=== PATIENT | female | born 1985 | race Caucasian/White ===

== ENCOUNTER 2018-05-24 22:01 | Emergency (ER) | payer SELFPAY ==
[2018-05-24 22:18] VITALS: BP 115/78; PULSE 74; TEMP 98.3; BMI 21.7
--- NOTE | 2018-05-24 22:37 | PDOC ---
History of Present Illness - History of Present Illness Initial Comments: This patient is a 32 year old female with no significant PMHx, who presents with nausea,and chest tightness today. Patient states that her nausea began this around 11 this morning and states that it comes and goes and has progressively worsened throughout the day. She states that she can't differentiate whether she is hungry or nauseous. She states that her last real meal was this morning in which she has had an egg and waffle. She states that she has only been able to tolerate a few bites of food since. She states that in the past hour she felt this tightness/stiffness in her left-sided chest that radiates down her left arm and lasted for approx. 10 mins, it has since subsided. She states that the chest tightness is non-exertional, or pleuritic in nature. She states her daughter had the stomach flu last week. Past Medical History: denies Social History: denies Tobacco, EtOH, or IV drug use. PCP: Ortiz Deleon She denies any vomit, abdominal pain, diarrhea, fever or chills. 05/24/18 23:13 <Madhuri Lindsey - Last Filed: 05/24/18 23:17> <Robina Cook - Last Filed: 05/25/18 01:43> - General Chief Complaint: Nausea Stated Complaint: NAUSEA, PAIN Time Seen by Provider: 05/24/18 22:14 Past History <Madhuri Lindsey - Last Filed: 05/24/18 23:17> - Past Medical History COPD: No - Suicide/Smoking/Psychosocial Hx Smoking History: Never smoked Have you smoked in the past 12 months: No Hx Alcohol Use: No Drug/Substance Use Hx: No Substance Use Type: None <Robina Cook - Last Filed: 05/25/18 01:43> - Past Medical History Allergies/Adverse Reactions: Allergies Allergy/AdvReac Type Severity Reaction Status Date / Time No Known Allergies Allergy Verified 03/09/16 11:44 Home Medications: Ambulatory Orders Ondansetron [Zofran Odt -] 4 mg SL TID #12 od.tablet 05/24/18 Review of Systems - Review of Systems Comments:: GENERAL/CONSTITUTIONAL: No fever or chills. No weakness. HEAD, EYES, EARS, NOSE AND THROAT: No change in vision. No ear pain or discharge. No sore throat. CARDIOVASCULAR: + chest tightness, no shortness of breath. RESPIRATORY: No cough, wheezing, or hemoptysis. GASTROINTESTINAL: +nausea, no vomiting, diarrhea or constipation. GENITOURINARY: No dysuria, frequency, or change in urination. MUSCULOSKELETAL: No joint or muscle swelling or pain. No neck or back pain. SKIN: No rash NEUROLOGIC: No headache, vertigo, loss of consciousness, or change in strength/ sensation. ENDOCRINE: No increased thirst. No abnormal weight change. HEMATOLOGIC/LYMPHATIC: No anemia, easy bleeding, or history of blood clots. ALLERGIC/IMMUNOLOGIC: No hives or skin allergy. 05/24/18 22:59 <Madhuri Lindsey - Last Filed: 05/24/18 23:17> *Physical Exam - Vital Signs Last Vital Signs Temp Pulse Resp BP Pulse Ox 98.3 F 74 16 115/78 100 05/24/18 22:15 05/24/18 22:15 05/24/18 22:15 05/24/18 22:15 05/24/18 22:15 - Physical Exam Comments: GENERAL: Awake, alert, and fully oriented, in no acute distress HEAD: No signs of trauma EYES: PERRLA, EOMI, sclera anicteric, conjunctiva clear ENT: Auricles normal inspection, hearing grossly normal, nares patent, oropharynx clear without exudates. Moist mucosa NECK: Normal ROM, supple, no lymphadenopathy, JVD, or masses LUNGS: Breath sounds equal, clear to auscultation bilaterally. No wheezes, and no crackles HEART: Regular rate and rhythm, normal S1 and S2, no murmurs, rubs or gallops ABDOMEN: Soft, nontender, normoactive bowel sounds. No guarding, no rebound. No masses EXTREMITIES: Normal range of motion, no edema. No clubbing or cyanosis. No cords, erythema, or tenderness NEUROLOGICAL: Cranial nerves II through XII grossly intact. Normal speech, normal gait SKIN: Warm, Dry, normal turgor, no rashes or lesions noted. 05/24/18 23:00 <Madhuri Lindsey - Last Filed: 05/24/18 23:17> - Vital Signs Last Vital Signs Temp Pulse Resp BP Pulse Ox 98.3 F 74 16 115/78 100 05/24/18 22:15 05/24/18 22:15 05/24/18 22:15 05/24/18 22:15 05/24/18 22:15 <Robina Cook - Last Filed: 05/25/18 01:43> Moderate Sedation - Procedure Monitoring Vital Signs: Procedure Monitoring Vital Signs Temperature 98.3 F 05/24/18 22:15 Pulse Rate 74 05/24/18 22:15 Respiratory Rate 16 05/24/18 22:15 Blood Pressure 115/78 05/24/18 22:15 O2 Sat by Pulse Oximetry (%) 100 05/24/18 22:15 <Madhuri Lindsey - Last Filed: 05/24/18 23:17> - Procedure Monitoring Vital Signs: Procedure Monitoring Vital Signs Temperature 98.3 F 05/24/18 22:15 Pulse Rate 74 05/24/18 22:15 Respiratory Rate 16 05/24/18 22:15 Blood Pressure 115/78 05/24/18 22:15 O2 Sat by Pulse Oximetry (%) 100 05/24/18 22:15 <Robina Cook - Last Filed: 05/25/18 01:43> Heart Score/ECG Review - ECG Intrepretation Comment:: Taken at 22:28:06 Normal sinus rhythm Vent. rate: 77 bpm 05/24/18 23:17 <Madhuri Lindsey - Last Filed: 05/24/18 23:17> Medical Decision Making - Medical Decision Making Documentation has been prepared under my direction and personally reviewed by me in its entirety. I attest that this documented accurately reflects all work, treatment, procedures and medical decision making performed by me. As noted above, this otherwise healthy 32-year-old woman presents with 1 day history of nausea without vomiting. She denies diarrhea/fever/chills. She had one episode lasting approximately 10 minutes of left-sided chest pressure earlier this evening, resolving spontaneously prior to presentation in the emergency room. She had exposure to gastroenteritis: Her daughter had "stomach flu" approximately a week ago. No recent travel. LMP was approximately one month ago. Exam as noted. 12-lead electrocardiogram was performed and interpreted by me: Normal sinus rhythm at 77 beats per minute; intervals/axis/waveforms are all normal without evidence of acute ST or T-wave abnormalities. No evidence of acute cardiac arrhythmia. Urinalysis and PGU performed: UA is normal with dipstick showing only trace ketone. PGU is negative Clinical presentation most consistent with early gastroenteritis. Prescription for Zofran ODT 4 mg up to 3 times a day as needed for nausea; patient should maintain a clear liquid diet and advance as tolerated. She should return to the ER if she has persistent vomiting, fever or increasing abdominal pain <Robina Cook - Last Filed: 05/25/18 01:43> *DC/Admit/Observation/Transfer - Attestations Scribe Attestion: 05/24/18 23:00 Documentation prepared by Madhuri Lindsey, acting as medical physiologist for Robina Cook MD. <aMdhuri Lindsey - Last Filed: 05/24/18 23:17> <Robina Cook - Last Filed: 05/25/18 01:43> Diagnosis at time of Disposition: Nausea - Discharge Dispostion Disposition: HOME Condition at time of disposition: Stable - Prescriptions Prescriptions: Ondansetron [Zofran Odt -] 4 mg SL TID #12 od.tablet - Referrals Referrals: Ortiz Deleon [Primary Care Provider] - - Patient Instructions Printed Discharge Instructions: DI for Nausea -- Adult Additional Instructions: clear liquids as tolerated Zofran ODT 4mg up to three times a day as needed for nausea advance to more solid foods as tolerated return to ER if you have persistent vomiting or abdominal pain/fever followup with your PMD within the next 5 days - Post Discharge Activity
[2018-05-24 23:05] LABS: URINE APPEARANCE Clear; URINE BILIRUBIN Negative (NEGATIVE); URINE COLOR Yellow; URINE GLUCOSE (UA) Negative (NEGATIVE); URINE KETONE Trace (NEGATIVE); URINE LEUK ESTERASE Negative (NEGATIVE); URINE NITRITE Negative (NEGATIVE); URINE PROTEIN Negative (NEGATIVE); URINE UROBILINOGEN 0.2 (0.2-1.0)
[2018-05-24 23:12] LABS: HCG,QUALITATIVE URINE Negative
--- NOTE | 2018-05-27 16:32 | EKG ---
Test Reason : Blood Pressure : / mmHG Vent. Rate : 077 BPM Atrial Rate : 077 BPM P-R Int : 160 ms QRS Dur : 092 ms QT Int : 382 ms P-R-T Axes : 053 062 052 degrees QTc Int : 432 ms POOR DATA QUALITY, INTERPRETATION MAY BE ADVERSELY AFFECTED NORMAL SINUS RHYTHM NORMAL ECG NO PREVIOUS ECGS AVAILABLE Confirmed by Néstor Min ([id number]) on 05/27/2018 4:32:32 PM Referred By: FRAN Confirmed By:Néstor Min
== END 2018-05-24 23:37 | disposition home or self-care (01) ==
LOC: FER 22:01
DX: R11.0 Nausea (principal)
CPT/HCPCS: 81003; 84703; 93005; 99281-25

== ENCOUNTER 2018-09-14 18:18 | Emergency (ER) | payer OTHER ==
--- NOTE | 2018-09-14 19:10 | PDOC ---
History of Present Illness - General Chief Complaint: Pain Stated Complaint: RLQ PAIN & BLOATING Time Seen by Provider: 09/14/18 18:28 Past History - Past Medical History Allergies/Adverse Reactions: Allergies Allergy/AdvReac Type Severity Reaction Status Date / Time No Known Allergies Allergy Verified 03/09/16 11:44 Home Medications: Ambulatory Orders Ondansetron [Zofran Odt -] 4 mg SL TID #12 od.tablet 05/24/18 COPD: No - Suicide/Smoking/Psychosocial Hx Smoking History: Never smoked Have you smoked in the past 12 months: No Hx Alcohol Use: No Drug/Substance Use Hx: No Substance Use Type: None *Physical Exam - Vital Signs Last Vital Signs Temp Pulse Resp BP Pulse Ox 98.2 F 79 16 123/74 100 09/14/18 18:26 09/14/18 18:26 09/14/18 18:26 09/14/18 18:26 09/14/18 18:26 ED Treatment Course - ADDITIONAL ORDERS Additional order review: Laboratory Results 09/14/18 18:50 Urine Color Yellow Urine Appearance Clear Urine pH 5.5 Urine Protein Negative Urine Glucose (UA) Negative Urine Ketones Negative Urine Blood Negative Urine Nitrite Negative Urine Bilirubin Negative Urine Urobilinogen 0.2 Ur Leukocyte Esterase Negative *DC/Admit/Observation/Transfer - Discharge Dispostion Condition at time of disposition: Good - Referrals Referrals: Ortiz Deleon [Primary Care Provider] - - Patient Instructions - Post Discharge Activity
[2018-09-14 19:14] VITALS: BP 123/74; PULSE 79; TEMP 98.2; BMI 21.6
--- NOTE | 2018-09-14 19:17 | PDOC ---
Documentation entered by Ez Foster SCRIBE, acting as scribe for Joe Wright MD. Joe Wright MD: This documentation has been prepared by the Cristian ratliff Andrys, SCRIBE, under my direction and personally reviewed by me in its entirety. I confirm that the documentation accurately reflects all work, treatment, procedures, and medical decision making performed by me. History of Present Illness - General Chief Complaint: Pain Stated Complaint: RLQ PAIN & BLOATING Time Seen by Provider: 09/14/18 18:28 History Source: Patient Exam Limitations: No Limitations - History of Present Illness Initial Comments: 09/14/18 19:12 The patient is a 32 year old female (A1) with a significant past medical history of HPV and UTI who present to the ED with right lower quadrant pain for 2 weeks and rectal pain for over a month. Patient reports progressively worsening constant right lower quadrant pain. She also reports pain to the right side of her rectum for over a month. Patient describes the pain as a pressure like sensation. She states she saw a specialist for her rectal pain and was told that she might possible have a fissure. Patient reports normal bowel movements. Denies vaginal discharge or bleeding. Denies rectal bleeding. Denies any other symptoms. LMP: 1 week ago Past History - Past Medical History Allergies/Adverse Reactions: Allergies Allergy/AdvReac Type Severity Reaction Status Date / Time No Known Allergies Allergy Verified 03/09/16 11:44 Home Medications: Ambulatory Orders Ondansetron [Zofran Odt -] 4 mg SL TID #12 od.tablet 05/24/18 COPD: No - Suicide/Smoking/Psychosocial Hx Smoking History: Never smoked Have you smoked in the past 12 months: No Hx Alcohol Use: No Drug/Substance Use Hx: No Substance Use Type: None Review of Systems - Review of Systems Able to Perform ROS?: Yes Comments:: 09/14/18 19:12 CONSTITUTIONAL: Absent: fever, chills, diaphoresis, generalized weakness, malaise, loss of appetite HEENT: Absent: rhinorrhea, nasal congestion, throat pain, throat swelling, difficulty swallowing, mouth swelling, ear pain, eye pain, visual Changes CARDIOVASCULAR: Absent: chest pain, syncope, palpitations, irregular heart rate, lightheadedness , peripheral edema RESPIRATORY: Absent: cough, shortness of breath, dyspnea with exertion, orthopnea, wheezing, stridor, hemoptysis GASTROINTESTINAL: + abdominal pain + rectal pain Absent: abdominal distension, nausea, vomiting, diarrhea, constipation, melena , hematochezia GENITOURINARY: Absent: dysuria, frequency, urgency, hesitancy, hematuria, flank pain, genital pain MUSCULOSKELETAL: Absent: myalgia, arthralgia, joint swelling SKIN: Absent: rash, itching, pallor HEMATOLOGIC/IMMUNOLOGIC: Absent: easy bleeding, easy bruising, lymphadenopathy, frequent infections ENDOCRINE: Absent: unexplained weight gain, unexplained weight loss, heat intolerance, cold intolerance NEUROLOGIC: Absent: headache, focal weakness or paresthesias, dizziness, unsteady gait, seizure, mental status changes, bladder or bowel incontinence PSYCHIATRIC: Absent: anxiety, depression, suicidal or homicidal ideation, hallucinations. All Other Systems: Reviewed and Negative *Physical Exam - Vital Signs Last Vital Signs Temp Pulse Resp BP Pulse Ox 98.2 F 79 16 123/74 100 09/14/18 18:26 09/14/18 18:26 09/14/18 18:26 09/14/18 18:26 09/14/18 18:26 - Physical Exam Comments: 09/14/18 19:12 GENERAL: Well developed, well nourished. Awake and alert. No acute distress. HEENT: Normocephalic, atraumatic. PERRLA, EOMI. No conjunctival pallor. Sclera are non- icteric. Moist mucous membranes. Oropharynx is clear. NECK: Supple. Full ROM. No JVD. Carotid pulses 2+ and symmetric, without bruits. No thyromegaly. No lymphadenopathy. CARDIOVASCULAR: Regular rate and rhythm. No murmurs, rubs, or gallops. Distal pulses are 2+ and symmetric. PULMONARY: No evidence of respiratory distress. Lungs clear to auscultation bilaterally. No wheezing, rales or rhonchi. ABDOMINAL: Soft. Non-tender. Non-distended. No rebound or guarding. No organomegaly. Normoactive bowel sounds. RECTAL: No masses or tenderness. There was no stool to obtain a specimen in the ampoule No external lesions, hemorrhoids or Fissures are visible. MUSCULOSKELETAL Normal range of motion at all joints. No bony deformities or tenderness. No CVA tenderness. EXTREMITIES: No cyanosis. No clubbing. No edema. No calf tenderness. SKIN: Warm and dry. Normal capillary refill. No rashes. No jaundice. NEUROLOGICAL: Alert, awake, appropriate. Cranial nerves 2-12 intact. No deficits to light touch and temperature in face, upper extremities and lower extremities. No motor deficits in the in face, upper extremities and lower extremities. Normoreflexic in the upper and lower extremities. Normal speech. Toes are down- going bilaterally. Gait is normal without ataxia. PSYCHIATRIC: Cooperative. Good eye contact. Appropriate mood and affect. ED Treatment Course - LABORATORY CBC & Chemistry Diagram: 09/14/18 19:10 09/14/18 19:10 - ADDITIONAL ORDERS Additional order review: Laboratory Results 09/14/18 09/14/18 18:50 18:50 Urine Color Yellow Urine Appearance Clear Urine pH 5.5 Urine Protein Negative Urine Glucose (UA) Negative Urine Ketones Negative Urine Blood Negative Urine Nitrite Negative Urine Bilirubin Negative Urine Urobilinogen 0.2 Ur Leukocyte Esterase Negative Urine HCG, Qual Negative Medical Decision Making - Medical Decision Making 09/17/18 09:[address] Castellanos 7 PM pending results of lab and further imaging studies. Patient clinically and hemodynamically stable, does not appear to be in severe pain, with a completely benign exam. *DC/Admit/Observation/Transfer Diagnosis at time of Disposition: Right lower quadrant abdominal pain - Discharge Dispostion Disposition: HOME Condition at time of disposition: Good - Referrals Referrals: Ortiz Deleon [Primary Care Provider] - - Patient Instructions Additional Instructions: For the pain take ibuprofen or naproxen as directed on the bottle. Take a copy of the CAT scan to your OB in follow-up with your OB. Return to the emergency department immediately with ANY new, persistent or worsening symptoms. Continue any medications as previously prescribed by your physician. You should follow up with your primary doctor as soon as possible regarding today's emergency department visit. . Please make sure your doctor reviews the results of your emergency evaluation. Thank you for coming to the Emergency Department today for your care. It was a pleasure to see you today. Please note that your evaluation is INCOMPLETE until you follow-up with your doctor. - Post Discharge Activity
--- NOTE | 2018-09-14 19:34 | PDOC ---
*Physical Exam - Vital Signs Last Vital Signs Temp Pulse Resp BP Pulse Ox 98.2 F 79 16 123/74 100 09/14/18 18:26 09/14/18 18:26 09/14/18 18:26 09/14/18 18:26 09/14/18 18:26 ED Treatment Course - LABORATORY CBC & Chemistry Diagram: 09/14/18 19:10 09/14/18 19:10 - ADDITIONAL ORDERS Additional order review: Laboratory Results 09/14/18 09/14/18 18:50 18:50 Urine Color Yellow Urine Appearance Clear Urine pH 5.5 Urine Protein Negative Urine Glucose (UA) Negative Urine Ketones Negative Urine Blood Negative Urine Nitrite Negative Urine Bilirubin Negative Urine Urobilinogen 0.2 Ur Leukocyte Esterase Negative Urine HCG, Qual Negative - RADIOLOGY Radiology Studies Ordered: Category Date Time Status ABDOMEN & PELVIS CT WITH CONTR [CT] Stat CT Scan 09/14/18 19:26 Ordered Progress Note - Progress Note Progress Note: Care of this [facility] Ellison at 1900 hrs. Patient is a 32-year-old female who comes in with several weeks of the right lower quadrant pain as well as some rectal pain. Patient is seen in [facility] and had a complete workup including Pap smear and pelvic exam which was normal. Patient saw a colorectal specialist and had a anoscopy which showed only a small fissure. Patient now comes in complaining of worsening pain Patient being worked up with a work and will also obtain a abdominal or pelvic CT. 22:00 Reevaluation patient feels much better pain nearly resolved. CAT scan shows no acute pathology Patient discharged will follow-up with her OB *DC/Admit/Observation/Transfer Diagnosis at time of Disposition: Right lower quadrant abdominal pain - Discharge Dispostion Disposition: HOME Condition at time of disposition: Good Decision to Admit order: No - Referrals Referrals: Ortiz Deleon [Primary Care Provider] - - Patient Instructions Additional Instructions: For the pain take ibuprofen or naproxen as directed on the bottle. Take a copy of the CAT scan to your OB in follow-up with your OB. Return to the emergency department immediately with ANY new, persistent or worsening symptoms. Continue any medications as previously prescribed by your physician. You should follow up with your primary doctor as soon as possible regarding today's emergency department visit. . Please make sure your doctor reviews the results of your emergency evaluation. Thank you for coming to the Emergency Department today for your care. It was a pleasure to see you today. Please note that your evaluation is INCOMPLETE until you follow-up with your doctor. - Post Discharge Activity
[2018-09-14 19:43] LABS: ALBUMIN 3.9 g/dl (3.4-5.0); BILIRUBIN,TOTAL 0.6 mg/dl (0.2-1); CALCIUM 8.8 mg/dl (8.5-10); CREATININE 0.5 mg/dl (0.55-1.3); POTASSIUM 3.8 mmol/L (3.5-5.1); TOT PROT 6.6 g/dl (6.4-8.2)
[2018-09-14 20:26] LABS: BASO % 1.3 % (0-2.0); EOS % 1.7 % (0-4.5); HEMATOCRIT 36.9 % (32.4-45.2); HEMOGLOBIN 12.6 GM/dL (10.7-15.3); LYMPH % 42.8 % (8-40); MCH 30.2 pg (25.7-33.7); MCHC 34.2 g/dl (32.0-36.0); MEAN CELL VOLUME 88.3 fl (80-96); MEAN PLT VOLUME 8.1 fl (7.5-11.1); MONO % 9.5 % (3.8-10.2); NEUT % 44.7 % (42.8-82.8); PLATELET COUNT 295 K/MM3 (134-434); RBC 4.18 M/mm3 (3.60-5.2); RDW 12.4 % (11.6-15.6); WHITE BLOOD COUNT 5.9 K/mm3 (4.0-10.0)
== END 2018-09-14 22:01 | disposition home or self-care (01) ==
LOC: FER 18:18
DX: R10.31 Right lower quadrant pain (principal)
CPT/HCPCS: 36415; 74177-TC; 80053; 81003; 84703; 85025; 99283-25

== ENCOUNTER 2019-12-07 09:24 | Emergency (ER) | payer OTHER ==
[2019-12-07] MEDS ORDERED: ONDANSETRON 4 MG/2 ML VIAL IVPUSH ONE (09:40)
[2019-12-07] MEDS ORDERED: SODIUM CHLORIDE 1,000 ML IV ONE (09:40)
--- NOTE | 2019-12-07 09:44 | PDOC ---
History of Present Illness - General Chief Complaint: Nausea Stated Complaint: RELATED NAUSEA Time Seen by Provider: 12/07/19 09:30 History Source: Patient Exam Limitations: No Limitations - History of Present Illness Travel History: No Initial Comments: 12/07/19 09:41 34y F A3 at approx 6 weeks by dates (LMP Oct 14) presents with nausea/v opmiting. Patient states she has felt very nauseous for the last several days, where it is difficult for her to tolerate oral intake, And she has a poor appetite. She denies any abdominal pain, vaginal bleeding, fever, chills, Back pain, dysuria, diarrhea, BPR. Patient states she also had similar symptoms during previous pregnancies however was able to avoid taking any medications. She did have a follow-up appointment with her CHEMICAL DEPENDENCY THERAPIST last she had an ultrasound that revealed no heart beat and was scheduled to go back for repeat ultrasound next week. However as she was feeling really nauseous her CHEMICAL DEPENDENCY THERAPIST referred her to the ER for evaluation. ROS: Constitutional - no reported Fever, Chills, HEENT: no reported vision changes, sore throat Respiratory: no reported cough, sob, hemoptysis Cardiac: no reported chest pain, palpitations, light headedness, leg swelling Abd/GI:+nausea, vomiting, no reported abd pain, blood per rectum, melena, diarrhea : no reported dysuria, frequency, discharge Musculskelatal - no reported back pain, joint swelling skin - no reported bruising, erythema, rash neurological: no reported headache, numbness, focal weakness, tingling, ataxia, hematologic: no reported easy bruising, easy bleeding Exam: GENERAL: The patient is awake, alert, and fully oriented, Nontoxic - in no acute distress. HEAD: Normocephalic, atraumatic. EYES: extraocular movements intact, sclera anicteric, conjunctiva clear. ENT: Normal voice, dry mucous membranes. NECK: Normal range of motion, supple LUNGS: Breath sounds equal, clear to auscultation bilaterally. No wheezes, no rhonchi, no rales. HEART: Regular rate and rhythm, normal S1 and S2 without murmur, rub or gallop. ABDOMEN: Soft, nontender, No guarding, no rebound. No CVA tenderness EXTREMITIES: Normal range of motion, no edema. NEUROLOGICAL: No facial assymetry, Normal speech, PSYCH: Normal mood, normal affect. SKIN: Warm, Dry, normal turgor, suspect hyperemesis gravidarum will give fluids/zofran will ck US to eval for FHR will ck labs, ua will reasess Past History - Medical History Allergies/Adverse Reactions: Allergies Allergy/AdvReac Type Severity Reaction Status Date / Time No Known Allergies Allergy Verified 03/09/16 11:44 Home Medications: Ambulatory Orders Doxylamine Succinate/Vit B6 [Kassy Jackson 10-10 mg Tablet] 1 each PO ASDIR #11 tablet. MDD 4 12/07/19 Mv-Mn/Iron/FA/Herbal/Digestive [ One Tablet] 1 each PO DAILY 12/07/19 95/Iron Fum/Folic/Dha [ + Dha Combo Pack] 1 each PO DAILY 12/07/19 COPD: No - Reproductive History Is Patient Now?: Yes - Psycho-Social/Smoking History Smoking History: Never smoked Have you smoked in the past 12 months: No - Substance Abuse Hx (Audit-C & DAST Scrn) How often the patient has a drink containing alcohol: Never Score: In Men: 4 or > Positive; In Women: 3 or > Positive: 0 Screen Result (Pos requires Nsg. Audit-10AR): Negative In the last yr the pt used illegal drug/Rx for NonMed reason: No Score: Yes response is considered Positive: 0 Screen Result (Positive result requires Nsg. DAST-10): Negative *Physical Exam - Vital Signs Last Vital Signs Temp Pulse Resp BP Pulse Ox 98.1 F 86 18 120/73 100 12/07/19 09:26 12/07/19 09:26 12/07/19 09:26 12/07/19 09:26 12/07/19 09:26 ED Treatment Course - LABORATORY CBC & Chemistry Diagram: 12/07/19 09:55 12/07/19 09:55 Medical Decision Making - Medical Decision Making 12/07/19 13:35 Patient is feeling improved the patient's transvaginal ultrasound noted for an IUP with heart rate detected. Will p.o. challenge with patient she is able to tolerate oral intake anticipate discharge with outpatient follow-up 12/07/19 13:51 pt tolerating oral intake. feels much better will austin ortega I discussed the physical exam findings, ancillary test results and final diagnoses with the patient. I answered all of the patient's questions. The patient was satisfied with the care received and felt comfortable with the discharge plan and treatment plan. The patient will call their primary care physician within 24 hours to arrange follow-up and will return to the Emergency Department with any new, persistent or worsening symptoms. Discharge - Discharge Information Problems reviewed: Yes Clinical Impression/Diagnosis: Hyperemesis gravidarum Condition: Improved Disposition: HOME - Admission No - Additional Discharge Information Prescriptions: Doxylamine Succinate/Vit B6 [Diclegis Dr 10-10 mg Tablet] 1 each PO ASDIR #11 tablet.dr RAMIREZ 4 - Follow up/Referral Referrals: Jason Hester [Primary Care Provider] - - Patient Discharge Instructions Patient Printed Discharge Instructions: DI for Hyperemesis Gravidarum Additional Instructions: Return to the emergency department immediately with ANY new, persistent or worsening symptoms including worsening abdominal pain, fevers, inability to tolerate oral intake, vaginal bleeding, chest pain, shortness of breath or any other concerns. Stay well hydrated. Take the diclegis as directed: Take 2 tabs at night on day 1 and 2. if symptoms persist, take 1 tablet in AM and 2 at bedtime on day 3, if symptmos persist 1 tab in AM 1 tab in afternoon, 2 tablets at bedtime on day 4. You MUST call and follow up with your doctor tomorrow. Your emergency department visit is not complete without a followup with your doctor for reevaluation. Please make sure your doctor reviews the results of your emergency evaluation. - Post Discharge Activity
[2019-12-07 09:45] VITALS: BP 120/73; PULSE 86; TEMP 98.1; BMI 22.4
[2019-12-07] MEDS ORDERED: ONDANSETRON 4 MG/2 ML VIAL ONE (09:52)
[2019-12-07 10:33] LABS: BASO % 1.1 % (0-2.0); EOS % 0.6 % (0-4.5); HEMATOCRIT 39.3 % (32.4-45.2); HEMOGLOBIN 13.7 GM/dl (10.7-15.3); LYMPH % 16.5 % (8-40); MCH 31.3 pg (25.7-33.7); MCHC 34.9 g/dl (32.0-36.0); MEAN CELL VOLUME 89.9 fl (80-96); MEAN PLT VOLUME 8.7 fl (7.5-11.1); MONO % 5.5 % (3.8-10.2); NEUT % 76.3 % (42.8-82.8); PLATELET COUNT 246 K/MM3 (134-434); RBC 4.36 M/mm3 (3.60-5.2); RDW 11.4 % (11.6-15.6); WHITE BLOOD COUNT 8.2 K/mm3 (4.0-10.8)
[2019-12-07 10:34] LABS: ALBUMIN 4.2 g/dl (3.4-5.0); BILIRUBIN,TOTAL 0.8 mg/dl (0.2-1); CALCIUM 8.9 mg/dl (8.5-10); CREATININE 0.5 mg/dl (0.55-1.3); POTASSIUM 4.1 mmol/L (3.5-5.1); TOT PROT 6.9 g/dl (6.4-8.2)
[2019-12-07] MEDS ORDERED: DEXTROSE 5%-NORMAL SALINE 1,000 ML IV ONE (11:05)
== END 2019-12-07 14:16 | disposition home or self-care (01) ==
LOC: FER 09:24
PROC: 3E033GC Introduction of Other Therapeutic Substance into Peripheral Vein, Percutaneous Approach (ICD-10-PCS; principal; 2019-12-07)
PROC: 3E0337Z Introduction of Electrolytic and Water Balance Substance into Peripheral Vein, Percutaneous Approach (ICD-10-PCS; 2019-12-07)
DX: O21.1 Hyperemesis gravidarum with metabolic disturbance (principal)
CPT/HCPCS: 36415; 76801-TC; 76817-TC; 80053; 81003; 84702; 85025; 96361; 96374; 96375; 99284-25